=== PATIENT | female | born 1970 | race Caucasian/White ===

== ENCOUNTER 2017-12-07 12:48 | Emergency (ER) | payer SELFPAY ==
[2017-12-07 13:21] LABS: URINE HCG POC HCG NEGATIVE (Negative)
[2017-12-07 13:21] LABS: BILIRUBIN,URINE NEGATIVE (NEG); CLARITY,URINE CLEAR; COLOR,URINE YELLOW; GLUCOSE,URINE NEGATIVE (NEG); NITRITE,URINE NEGATIVE (NEG); PROTEIN,URINE NEGATIVE (NEG-TRACE); UROBILINOGEN,URINE 0.2 mg/dL (0.2 mg/dL)
[2017-12-07] MEDS: IV NORMAL SALINE 1000ML BAG 1,000 ML IV (13:32)
[2017-12-07] MEDS: KETOROLAC 15 MG/ML VIAL. IV (13:32)
[2017-12-07] MEDS: ONDANSETRON PF 4 MG/2 ML VIAL. IV (13:32)
[2017-12-07 13:33] LABS: BACTERIA,URINE MOD /HPF (0-FEW); RBC,URINE 0 /HPF (0-2)
[2017-12-07 13:34] LABS: SQUAMOUS EPITHELIAL CELL,UR MOD /LPF
[2017-12-07 13:46] LABS: BASO % 1 % (0-3); EOS # 0.1 x10^3/uL (0.0-0.7); EOS % 1 % (0-3); HEMATOCRIT 38.6 % (36.0-47.0); HEMOGLOBIN 13.3 g/dL (12.0-15.5); LYMPH # 3.1 x10^3/uL (1.0-4.8); LYMPH % 51 % (24-48); MEAN CORPUSCULAR HEMOGLOBIN 31 pg (25-35); MEAN CORPUSCULAR HGB CONC 35 g/dL (31-37); MEAN CORPUSCULAR VOLUME 91 fL (79-100); MONO # 0.5 x10^3/uL (0.0-1.1); MONO % 8 % (0-9); NEUT # 2.4 x10^3uL (1.8-7.7); NEUT % 39 % (31-73); PLATELET COUNT 222 x10^3/uL (140-400); RED BLOOD COUNT 4.23 x10^6/uL (3.50-5.40); RED CELL DISTRIBUTION WIDTH 13.7 % (11.5-14.5); WHITE BLOOD COUNT 6.1 x10^3/uL (4.0-11.0)
[2017-12-07 13:48] LABS: ADD MAN DIFF? YES
[2017-12-07 13:51] LABS: ANION GAP 9 (6-14); BLOOD UREA NITROGEN 20 mg/dL (7-20); BUN/CREATININE RATIO 33 (6-20); CALCIUM 9.1 mg/dL (8.5-10.1); CARBON DIOXIDE 27 mmol/L (21-32); CHLORIDE 105 mmol/L (98-107); CREATININE 0.6 mg/dL (0.6-1.0); GFR 107.6; GLUCOSE 106 mg/dL (70-99); POTASSIUM 3.9 mmol/L (3.5-5.1); SODIUM 141 mmol/L (136-145)
[2017-12-07 13:57] LABS: ALBUMIN 3.5 g/dL (3.4-5.0); ALBUMIN/GLOBULIN RATIO 1.1 (1.0-1.7); ALK PHOS 76 U/L (46-116); ALT (SGPT) 18 U/L (14-59); AST (SGOT) 14 U/L (15-37); TOTAL BILIRUBIN 0.4 mg/dL (0.2-1.0); TOTAL PROTEIN 6.8 g/dL (6.4-8.2)
[2017-12-07 14:18] LABS: % EOS 1 % (0-5); % METAS 1 % (0-0); % MONOS 5 % (0-10); % SEGS 45 % (35-66)
[2017-12-07 14:27] LABS: % ATYL 4 % (0-0); % LYMPHS 44 % (24-48); PLT ESTIMATE ADEQUATE (ADEQUATE)
[2017-12-07] MEDS: ORPHENADRINE CITRATE 60 MG/2 ML VIAL. IM (14:45)
== END 2017-12-07 16:00 | disposition home or self-care (01) ==
LOC: ER 12:48
DX: M54.5 Low back pain (principal); R10.84 Generalized abdominal pain; R14.0 Abdominal distension (gaseous); R11.0 Nausea; R35.0 Frequency of micturition
CPT/HCPCS: 36415; 80053; 81001; 81025; 85007; 85025; 96372; 96374; 96375; 99284-25; J1885; J2360; J2405; J7030